=== PATIENT | male | born 1975 | race Caucasian/White ===

== ENCOUNTER → 2020-08-11 10:30 | Outpatient (BNVA) | payer MEDICARE, MEDICAID, SELFPAY | PROVIDERS: Family Provider Nurse Practitioner Family; PCP Registered Nurse; Visit Provider Nurse Practitioner Family | DX: Z11.59 Encounter for screening for other viral diseases (principal); Z20.828 Contact with and (suspected) exposure to other viral communicable diseases; J06.9 Acute upper respiratory infection, unspecified | CPT/HCPCS: 87635 ==

== ENCOUNTER 2022-12-28 10:52 | Emergency (ER) | payer MEDICARE, MEDICAID, SELFPAY ==
[2022-12-28 11:03] VITALS: BP 154/98; PULSE 87; RESP 20; TEMP 36.7; O2SAT 97; BMI 24.4
--- NOTE | 2022-12-28 11:09 | ECG_ITS ---
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 Measurements Intervals Richardson Rate: 76 P: 25 AZ: 135 QRS: 17 QRSD: 104 T: 43 QT: 377 QTc: 425 Interpretive Statements SINUS RHYTHM WITH OCCASIONAL SUPRAVENTRICULAR PREMATURE COMPLEXES POSSIBLE RIGHT VENTRICULAR CONDUCTION DELAY [RSR (QR) IN V1/V2] Compared to ECG 06/27/2017 23:49:00 No significant changes Electronically Signed On 12-28-2022 17:36:05 RETAIL WIRELESS SALES REPRESENTATIVE by Andrae Chavira M.D. [id number]
--- NOTE | 2022-12-28 11:12 | XR_ITS ---
WS: [id number] Exam: XR chest 2V* [id number] Date/Time of Exam: 12/28/2022 11:21 AM Reason For Exam: shortness of breath Comparison 06/09/2021. The lungs are fully expanded and clear. Mild elevation of the left diaphragm that is chronic. Normal cardiomediastinal silhouette. Several old right rib fractures. Minimal thoracic spine dextroscoliosis . XR/XR chest 2V* [id number] IMPRESSION: 1. No acute cardiopulmonary process. No change.
[2022-12-28 11:44] LABS: Add Urine Microscopic? NO; Charge for UA Resulting for Rev
[2022-12-28 11:54] LABS: Bilirubin Urine Neg (Negative); Blood Urine Neg (Negative); Glucose Urine UA Norm (Normal); Ketones Urine 1+ (Negative); Leukocyte Esterase Urine Negative (Negative); Nitrate Urine Negative (Negative); Protein Urine Neg (Negative); Specific Gravity, Urine 1.015 (1.005-1.030); Urine Appearance Clear (CLEAR); Urine Color Yellow (Yellow); Urobilinogen Urine 4 mg/dL (Negative); pH Urine 6 (5-7)
[2022-12-28 12:15] LABS: Basophils % 0.4 %; Eosinophils # 0.3 10^3/uL (0.0-0.8); Eosinophils % 3.2 %; Hemoglobin 17.8 g/dL (11.7-16.6); Lymphocytes # 1.9 10^3/uL (0.8-4.8); Mean Corpuscular HGB Conc 33.6 g/dL (30.0-36.0); Mean Corpuscular Hemoglobin 32.2 pg (28.0-34.0); Monocytes # 0.6 10^3/uL (0.2-0.9); Monocytes % 7.8 %; Neutrophils # 5.27 10^3/uL (1.8-7.7); Neutrophils % 65.5 %; Nucleated Red Blood Cells % 0 %; Platelet Count 277 10^3/cmm (130-400); Red Blood Count 5.52 10^6/uL (4.1-5.3); Red Cell Distribution Width 12.4 % (12.1-15.1); White Blood Count 8.1 10^3/uL (4.0-10.0)
[2022-12-28 12:35] LABS: D Dimer 0.99 ug/mIFEU (0-0.59)
[2022-12-28 12:37] LABS: Alanine Aminotransferase 12 U/L (0-41); Albumin Level 5.3 g/dL (3.5-5.2); Alkaline Phosphatase 106 U/L (40-130); Anion Gap 17.4 (5-19); Aspartate Amino Transferase 24 U/L (0-40); Blood Urea Nitrogen 6 mg/dL (6-20); Carbon Dioxide 27 mmol/L (22-29); Chloride 97 mmol/L (98-107); Globulin 3.3 g/dL (1.3-4.6); Glomerular Filtration Rate 91.3 mL/min (90-130); Glucose 114 mg/dL (65-115); Osmolality Calculated 284 mOsm/kg (285-295); Potassium 3.4 mmol/L (3.5-5.1); Sodium 138 mmol/L (136-145); Total Bilirubin 0.6 mg/dL (0.15-1.2); Total Protein 8.6 g/dL (6.6-8.7)
--- NOTE | 2022-12-28 12:38 | CT_ITS ---
WS: [id number] CTA OF THE CHEST WITH PULMONARY EMBOLISM PROTOCOL TECHNIQUE: High-resolution contrast enhanced CTA of the chest with coronal and sagittal reformatted i mages with pulmonary embolism protocol. MIP images are also reviewed. CLINICAL INFORMATION: shortness of breath and back pain COMPARISON: CTA June 27, 2017 DLP: 328.[address] scans at [facility] use at least one of these dose optimization techniques: automated e xposure control; mA and/or kV adjustment per patient size (includes targeted exams where dose is matc hed to clinical indication); or iterative reconstruction. FINDINGS: Proximal main pulmonary arteries are normal. Normal segmental and subsegmental pulmonary arteries. No filling defects. No evidence of pulmonary embolus. No acute pulmonary infiltrates. No focal pneumoni a or pleural fluid. Slight subsegmental atelectasis LEFT lower lobe. Slight volume loss LEFT lower lobe. Normal caliber thoracic aorta. Small esophageal hiatal hernia. Ad renal glands are normal. No other suspicious findings. CT/CT angio chest PE protcl [id number] IMPRESSION: 1. No evidence of pulmonary embolus. 2. No acute pulmonary infiltrates. 3. Small esophageal hiatal hernia.
[2022-12-28 13:06] LABS: Troponin(5th) Baseline 6 ng/L (0-15)
[2022-12-28] MEDS: iohexol 350 mg/mL 500 mL Btl (per mL) IV (13:13)
--- NOTE | 2022-12-28 13:44 | W.ED.SOB ---
HPI - SOB/Dyspnea General: Chief Complaint: Shortness of Breath/Dyspnea Stated Complaint: SOB/back pain Time Seen by Provider: 12/28/22 11:18 History of Present Illness: HPI Narrative: Patient is in today with complaints of shortness of breath and back pain. Patient reports that he has been having increasing shortness of breath over 2 days with posterior back pain more on the right side. He reports that this is very similar to when he had his last pulmonary embolism. He reports that he has felt a low-grade fever but has not measured that. He also reports that he has some nasal congestion and has had a couple spots of blood whenever he blows his nose. He reports this has been ongoing for some time and is not extremely bothersome. He does offer that he has clicking and other sounds in both of his ears over 1 year now. He missed his appointment with ENT. Associated symptoms: Reports chest pain and fever(s) (Reports a low-grade fever not measured); Deny abdominal pain, nausea, palpitations or vomiting Review of Systems Const: Reports: fever(s) (Reports a low-grade fever not measured); Denies: chills or body aches Eyes: Denies: change in vision or blurry vision ENMT: Reports: tinnitus, nasal congestion and epistaxis (A couple spots of blood on tissue after blowing) Card: Reports: chest pain; Denies: palpitations or irregular heart rhythm Resp: Reports: dyspnea GI: Denies: abdominal pain, nausea or vomiting : Denies: flank pain, dysuria, urinary frequency, urinary urgency or urinary hesitancy Musc: Denies: neck pain or back pain Neuro: Denies: headache(s), numbness in extremities or weakness in extremities PFS ED PFSH: Medical History Nocturnal hypoxemia Physical Exam Const: COMMON NORMALS: patient oriented x3 and alert OTHER: On my first exam patient is slightly tachypneic but not in acute distress HENMT: COMMON NORMALS: normocephalic, external ears normal, EAC's normal, TM's normal bilaterally, moist oral mucous membranes and oropharynx normal HEAD & SCALP: normocephalic NOSE: Abnormal mucous membranes and turbinates present boggy and erythematous EXTERNAL EAR: Yes external ears normal EXTERNAL AUDITORY CANAL: EAC's normal TYMPANIC MEMBRANE: TM's normal bilaterally THROAT: posterior oropharynx normal and uvula midline Neck/C-Spine: COMMON NORMALS: no JVD Resp: COMMON NORMALS: No use of accessory muscles and clear to auscultation bilaterally EFFORT & INSPECTION: Yes symmetric chest movement, Yes tachypneic and No respiratory distress AUSCULTATION: clear to auscultation bilaterally Cardio: COMMON NORMALS: no JVD, regular rate, regular rhythm, S1 normal heart sound present and S2 normal heart sound present RATE: regular rate RHYTHM: regular rhythm HEART SOUNDS: S1 normal heart sound present and S2 normal heart sound present GI: COMMON NORMALS: Normal to inspection, nondistended, normoactive bowel sounds present, Soft to palpation and non-tender PALPATION: Yes Soft to palpation : COMMON NORMALS: Yes no CVA tenderness BLADDER/KIDNEY EXAM: Yes no CVA tenderness Back/Pelvis: COMMON NORMALS: no CVA tenderness Neuro: COMMON NORMALS: patient oriented x3 SENSORIUM/ORIENTATION: Yes alert Course Vital Signs: Vital signs: Vital Signs Temperature 98.0 F 12/28/22 11:03 Pulse Rate 87 12/28/22 11:03 Respiratory Rate 20 H 12/28/22 11:03 Blood Pressure 154/98 12/28/22 11:03 Pulse Oximetry 97 12/28/22 11:03 Oxygen Delivery Me thod 12/28/22 11:03 MDM - SOB/Dyspnea Medical Decision Making This patient is a 47-year-old male with a 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 Patient reports that he was on anticoagulant medication x1 year and then has been off of it for 4 years. He reports that he still does have to use oxygen occasionally. He states that for approximately 2 days he has had significantly worsening shortness of breath and he has had pain in his back like he did when he had his pulmonary embolus. He reports feeling like he has had a low-grade fever but has not measured the fever. He also reports some nasal congestion and drainage with tinnitus of his ears ongoing x1 year. Patient had numerous medical complaints today. Patient rated the pain approximately a 7 on a 0-to-10 scale. Said it was slightly worse with deep inspiration but otherwise it just hurt all of the time. Lab work-up is done. Initial D-dimer is elevated. Chest x-ray shows no acute cardiopulmonary changes. CTA chest shows no evidence of pulmonary embolus. Patient chooses to leave before the results of troponins are done. Patient reports that he wants to smoke and he is leaving. He requested his IV be discontinued. We discussed the results of his testing today. We discussed the risk of not having further evaluation as ordered here. Patient states that he will assume those risks. He does request that I give him [id number] Zyrtec and Flonase as he does not have money to afford these medications. I encouraged him to return to the ER should he change his mind or have new or worsening symptoms. Encouraged him to follow-up with his primary care provider. Patient discharged to home ambulatory in stable condition Lab Data 12/28/22 12:00 12/28/22 12:00 Labs/Radiology: Radiology Impressions Chest X-Ray 12/28/22 11:12 IMPRESSION: 1. No acute cardiopulmonary process. No change. Chest CTA 12/28/22 12:38 IMPRESSION: 1. No evidence of pulmonary embolus. 2. No acute pulmonary infiltrates. 3. Small esophageal hiatal hernia. Laboratory Results WBC 8.1 10^3/uL (4.0-10.0) 12/28/22 12:00 RBC 5.52 10^6/uL (4.1-5.3) H 12/28/22 12:00 Hgb 17.8 g/dL (11.7-16.6) H 12/28/22 12:00 Hct 53.0 % (42.0-52.0) H 12/28/22 12:00 MCV 96.0 fl (80-94) H 12/28/22 12:00 MCH 32.2 pg (28.0-34.0) 12/28/22 12:00 MCHC 33.6 g/dL (30.0-36.0) 12/28/22 12:00 RDW 12.4 % (12.1-15.1) 12/28/22 12:00 Plt Count 277 10^3/cmm (130-400) 12/28/22 12:00 MPV 10.0 fL (7.4-10.4) 12/28/22 12:00 Neut % (Auto) 65.5 % 12/28/22 12:00 Lymph % (Auto) 23.0 % 12/28/22 12:00 [place] % (Auto) 7.8 % 12/28/22 12:00 Eos % (Auto) 3.2 % 12/28/22 12:00 Baso % (Auto) 0.4 % 12/28/22 12:00 Neut # (Auto) 5.27 10^3/uL (1.8-7.7) 12/28/22 12:00 Lymph # (Auto) 1.9 10^3/uL (0.8-4.8) 12/28/22 12:00 [place] # (Auto) 0.6 10^3/uL (0.2-0.9) 12/28/22 12:00 Eos # (Auto) 0.3 10^3/uL (0.0-0.8) 12/28/22 12:00 Baso # (Auto) 0.0 10^3/uL (0.0-0.1) 12/28/22 12:00 Nucleated RBC % (auto) 0 % 12/28/22 12:00 Nucleated RBCs # 0.0 /100WBC 12/28/22 12:00 D-Dimer 0.99 ug/mIFEU (0-0.59) H 12/28/22 12:00 Sodium 138 mmol/L (136-145) 12/28/22 12:00 Potassium 3.4 mmol/L (3.5-5.1) L 12/28/22 12:00 Chloride 97 mmol/L (98-107) L 12/28/22 12:00 Carbon Dioxide 27 mmol/L (22-29) 12/28/22 12:00 Anion Gap 17.4 (5-19) 12/28/22 12:00 BUN 6 mg/dL (6-20) 12/28/22 12:00 Creatinine 0.9 mg/dL (0.7-1.2) 12/28/22 12:00 GFR Calculation 91.3 mL/min (90-130) 12/28/22 12:00 Glucose 114 mg/dL (65-115) 12/28/22 12:00 Calculated Osmolality 284 mOsm/kg (285-295) L 12/28/22 12:00 Calcium 10.0 mg/dL (8.5-10.5) 12/28/22 12:00 Total Bilirubin 0.6 mg/dL (0.15-1.2) 12/28/22 12:00 AST 24 U/L (0-40) 12/28/22 12:00 ALT 12 U/L (0-41) 12/28/22 12:00 Alkaline Phosphatase 106 U/L (40-130) 12/28/22 12:00 Troponin T Baseline 6 ng/L (0-15) 12/28/22 12:42 Total Protein 8.6 g/dL (6.6-8.7) 12/28/22 12:00 Albumin 5.3 g/dL (3.5-5.2) H 12/28/22 12:00 Globulin 3.3 g/dL (1.3-4.6) 12/28/22 12:00 Urine Color Yellow (Yellow) 12/28/22 11:32 Urine Appearance Clear (CLEAR) 12/28/22 11:32 Urine pH 6 (5-7) 12/28/22 11:32 Ur Specific Neal 1.015 (1.005-1.030) 12/28/22 11:32 Urine Protein Neg (Negative) 12/28/22 11:32 Urine Glucose (UA) Norm (Normal) 12/28/22 11:32 Urine Ketones 1+ (Negative) H 12/28/22 11:32 Urine Blood Neg (Negative) 12/28/22 11:32 Urine Nitrate Negative (Negative) 12/28/22 11:32 Urine Bilirubin Neg (Negative) 12/28/22 11:32 Urine Urobilinogen 4 mg/dL (Negative) H 12/28/22 11:32 Ur Leukocyte Esterase Negative (Negative) 12/28/22 11:32 Discharge Plan Discharge Patient Disposition: Home Clinical Impression: Shortness of breath, Back pain Condition: Stable Prescriptions: New Flonase Allergy Relief 50 mcg/actuation spray,suspension 1 spray intranasal DAILY PRN (Reason: nasal congestion) Qty: 16 0RF Rx Instructions: administer into each nostril Zyrtec 10 mg capsule 10 mg PO DAILY Qty: 30 0RF No Action Oxygen 2 l nasal .At bedtime Qty: 1 0RF Rx Instructions: Patient needs new supplies including concentrator Advair HFA 230-21 mcg/actuation HFA aerosol inhaler 1 puff INHALATION BID Qty: 12 0RF Rx Instructions: has to be name brand! albuterol sulfate [Ventolin HFA] 90 mcg/actuation HFA aerosol inhaler 2 puff INHALATION Q4H PRN (Reason: shortness of breath or wheezing) Qty: 6.7 3RF Discharge Orders: Discharge ED (Routine); Ordered 12/28/22 Ordered By: Vicki Bonilla Referrals: Tesha Flores PA [Primary Care Provider] - Activity Restrictions/Additional Instructions: Your testing did not show any evidence of a pulmonary embolism at this time. You are deciding to leave prior to completion of work-up and evaluation for possible cardiac causes of chest pain and shortness of breath. Return to the ER for any new or worsening symptoms Coding Level of Care Code ED Airline Flight Attendant for Scarlett Doran
== END 2022-12-28 13:50 | disposition home or self-care (01) ==
PROVIDERS: Emergency Provider Nurse Practitioner Family; PCP Physician Assistant
DX: R06.02 Shortness of breath (principal); M54.9 Dorsalgia, unspecified; K44.9 Diaphragmatic hernia without obstruction or gangrene
CPT/HCPCS: 71046; 71275; 80053; 81003; 84484; 85025; 85378; 93005; 99285; Q9967

== ENCOUNTER 2024-02-22 16:27 | Emergency (ER) | payer MEDICARE, MEDICAID, SELFPAY ==
--- NOTE | 2024-02-22 16:29 | XRR_ITS ---
PROCEDURE INFORMATION: Exam: XR Chest Exam date and time: 02/22/2024 5:01 PM Age: 49 years old Clinical indication: Cough TECHNIQUE: Imaging protocol: Radiologic exam of the chest. Views: 1 view. COMPARISON: CT angio chest PE prot [id number] 12/28/2022 1:00 PM FINDINGS: Lungs: Lungs are clear bilaterally. Pleural spaces: Interval development of a small left pleural effusion. No pneumothorax. Heart/Mediastinum: Stable mild enlargement of the heart. Bones/joints: Unremarkable for age. XR/XR chest 1V portable [id number] IMPRESSION: 1. Interval development of a small left pleural effusion. 2. Incidental/nonacute findings are listed in the report.
[2024-02-22 16:38] VITALS: BP 104/68; PULSE 110; RESP 18; TEMP 37.7; O2SAT 97
--- NOTE | 2024-02-22 17:04 | ED_ITS ---
HPI - URI/Sore Throat General: Chief Complaint: Fever Stated Complaint: cough, fever Time Seen by Provider: 02/22/24 16:31 Source: patient Mode of arrival: ambulatory Limitations: no limitations History of Present Illness: Patient is a 49-year-old male who presents to ED today along with his grandson who is also being seen for identical symptoms. Patient states approximately 5 days ago him and his grandson both came down with fevers and body aches. He states since then they have had cough, congestion, and patient started with diarrhea today. He states he was in direct exposure with somebody positive for influenza as he shared a car ride with him out of town. MD elicited complaint: fever, cough and other (diarrhea, fevers/body aches) Description of mucous: clear Able to tolerate fluids by mouth: Yes Exacerbating factors: nothing Relieving factors: nothing Associated symptoms: Reports chills, diarrhea and fever(s); Deny abdominal pain, chest pain, headache(s), nasal congestion, nausea, sinus pain or vomiting Treatments prior to arrival: none Review of Systems Const: Reports: fever(s), chills and body aches; Denies: fatigue or malaise Eyes: Denies: change in vision, blurry vision, photophobia, floaters or seeing flashes ENMT: Denies: throat pain, odynophagia, nasal discharge, nasal congestion or sinus pain Card: Denies: chest pain, palpitations, irregular heart rhythm, edema, swelling of feet/ankles, lightheadedness, syncope or pre-syncope Resp: Reports: productive cough and chest congestion; Denies: dyspnea, wheezing or hemoptysis GI: Reports: diarrhea; Denies: abdominal pain, nausea or vomiting : Denies: flank pain, difficulty urinating, dysuria, urinary frequency, urinary urgency or urinary hesitancy Musc: Denies: neck pain, back pain, extremity pain or joint pain Skin/Breast: Denies: rash Neuro: Denies: headache(s), numbness in extremities, weakness in extremities, sensory changes or dizziness PFS ED PFSH: Medical History Exposure to COVID-19 virus Nocturnal hypoxemia Physical Exam Const: COMMON NORMALS: no acute distress, average body habitus, patient oriented x3, no limitations, healthy appearing, alert and well nourished GENERAL APPEARANCE: cooperative ORIENTATION/CONSCIOUSNESS: Yes awake, Yes oriented to person, Yes oriented to place and Yes oriented to time HENMT: COMMON NORMALS: normocephalic, atraumatic, hearing grossly normal bilaterally, external ears normal, EAC's normal, TM's normal bilaterally, Normal external nose present, Normal nasal mucous membranes and turbinates present, moist oral mucous membranes and oropharynx normal HEAD & SCALP: normal to inspection, normocephalic and atraumatic FACE & SINUS: normal facial exam and sinuses nontender NOSE: Normal external nose present and Normal nasal mucous membranes and turbinates present EXTERNAL EAR: Yes external ears normal EXTERNAL AUDITORY CANAL: EAC's normal TYMPANIC MEMBRANE: TM's normal bilaterally MOUTH: Normal oral and palatal mucosa present and lip normal THROAT: posterior oropharynx normal, tonsils normal and uvula midline Eye: COMMON NORMALS: Equal, round and reactive pupils present, EOMs intact bilaterally and conjunctivae normal CONJUNCTIVA: Yes conjunctivae normal PUPIL: Yes Equal, round and reactive pupils present Neck/C-Spine: COMMON NORMALS: no lymphadenopathy Resp: COMMON NORMALS: normal respiratory effort EFFORT & INSPECTION: Yes able to speak in complete sentences Cardio: COMMON NORMALS: regular rate and regular rhythm RATE: regular rate RHYTHM: regular rhythm Back/Pelvis: COMMON NORMALS: thoracic and lumbar spine normal to inspection Extremity: GENERAL: Yes normal exam except as noted Neuro: JERROD COMA SCALE: document GCS findings Jerrod coma scale eye opening: Spontaneous [place] coma scale verbal response: Orientated [place] coma scale motor response: Obey commands [place] coma scale total score: 15 COMMON NORMALS: patient oriented x3, moves all extremities, no focal motor deficits and no sensory deficits noted SENSORIUM/ORIENTATION: Yes alert, Yes oriented to person, Yes oriented to place and Yes oriented to time Skin: COMMON NORMALS: no rashes or lesions noted GENERAL SKIN EXAM: no rashes or lesions noted Course Vital Signs: Vital signs: Vital Signs Temperature 99.9 F H 02/22/24 16:38 Pulse Rate 110 H 02/22/24 16:38 Respiratory Rate 18 02/22/24 16:38 Blood Pressure 104/68 02/22/24 16:38 Pulse Oximetry 97 02/22/24 16:38 Oxygen Delivery Me thod Room Air 02/22/24 16:38 MDM - URI/Sore Throat Medical Decision Making Patient appears in no acute distress. Most likely symptoms are consistent with influenza as he has had direct exposure with another contact who was positive. CXR showing no acute changes from previous. Respiratory panel collected and pending. You will be called later today with any positive results. Return to ED precautions given. Differential Diagnosis Likely upper respiratory infection, viral infection, bronchitis and influenza Medical Records I reviewed the patient's medical records. Lab Data Radiology Impressions Chest X-Ray 02/22/24 16:29 IMPRESSION: 1. Interval development of a small left pleural effusion. 2. Incidental/nonacute findings are listed in the report. XR interpretation done by ED provider, pending radiology final review Discharge Plan Discharge Patient Disposition: Home Clinical Impression: Upper respiratory tract infection Qualifiers: URI type: unspecified viral URI Qualified Code(s): J06.9 - Acute upper respiratory infection, unspecified Condition: Stable Prescriptions: No Action albuterol sulfate [Ventolin HFA] 90 mcg/actuation HFA aerosol inhaler 2 puff INHALATION Q4H PRN (Reason: shortness of breath or wheezing) Qty: 6.7 3RF lorazepam [Ativan] 0.5 mg tablet 0.5 mg PO TID PRN (Reason: anxiety) Qty: 90 1RF Zyrtec 10 mg capsule 10 mg PO DAILY Qty: 30 0RF Discharge Orders: Discharge ED (Routine); Ordered 02/22/24 Ordered By: Jeanette Umanzor Referrals: Tesha Flores PA [Primary Care Provider] - Patient Instructions: Upper Respiratory Infection (DC), Viral Syndrome (ED), Upper Respiratory Infection - Adult Coding Level of Care Code ED Laborer St[employer] for Scarlett Doran
[2024-02-22 19:34] LABS: Adenovirus Not Detected (NOT DETECT); Chlamydia Pneumoniae Not Detected (NOT DETECT); Coronavirus 229E,HKU1,NL63,OC4 Not Detected (NOT DETECT); Human Metapneumovirus Not Detected (NOT DETECT); Human Rhinovirus/Enterovirus Not Detected (NOT DETECT); Influenza A Detected (NOT DETECT); Influenza A H1 Not Detected (NOT DETECT); Influenza A H1-2009 Not Detected (NOT DETECT); Influenza A H3 Detected (NOT DETECT); Influenza B Not Detected (NOT DETECT); Mycoplasma Pneumoniae Not Detected (NOT DETECT); Parainfluenza Virus Type 1 Not Detected (NOT DETECT); Parainfluenza Virus Type 2 Not Detected (NOT DETECT); Parainfluenza Virus Type 3 Not Detected (NOT DETECT); Parainfluenza Virus Type 4 Not Detected (NOT DETECT); Respiratory Syncytial Virus A Not Detected (NOT DETECT); Respiratory Syncytial Virus B Not Detected (NOT DETECT); SARS-COV-2 Not Detected (NOT DETECT)
--- NOTE | 2024-02-22 20:50 | PC.NURSE ---
pt called for test results and was informed of flu a results
== END 2024-02-22 17:35 | disposition home or self-care (01) ==
PROVIDERS: Emergency Provider Physician Assistant; PCP Physician Assistant
DX: J06.9 Acute upper respiratory infection, unspecified (principal)
CPT/HCPCS: 71045; 87486; 87581; 87633; 99284